=== PATIENT | female | born 1995 | race Caucasian/White ===

== ENCOUNTER 2018-04-01 11:30 | Inpatient (IN) | payer OTHER ==
[~2018-04-01] VITALS: Ht 160 cm; Wt 81.6 kg
[2018-04-27] MEDS ORDERED: FOLIC ACID20 MG PO (08:58)
[2018-04-27] MEDS ORDERED: PRENATAL FORMU1 EAC1 PO (08:58)
== END 2018-04-29 12:06 | DRG 775 ==
LOC: LDR 04-27 03:45 → OB/GYN 04-27 11:57
PROC: 0DQR0ZZ Repair Anal Sphincter, Open Approach (ICD-10-PCS; principal; 2018-04-27)
PROC: 10E0XZZ Delivery of Products of Conception, External Approach (ICD-10-PCS; 2018-04-27)
PROC: 0W8NXZZ Division of Female Perineum, External Approach (ICD-10-PCS; 2018-04-27)
PROC: 4A1HXCZ Monitoring of Products of Conception, Cardiac Rate, External Approach (ICD-10-PCS; 2018-04-27)
PROC: 4A033R1 Measurement of Arterial Saturation, Peripheral, Percutaneous Approach (ICD-10-PCS; 2018-04-27)
DX: O70.20 Third degree perineal laceration during delivery, unspecified (principal); Z3A.39 39 weeks gestation of pregnancy; Z37.0 Single live birth

== ENCOUNTER 2018-04-22 09:09 | Outpatient (CLI) | payer OTHER | END 2018-04-22 13:30 | disposition home or self-care (01) | LOC: NST 09:09 | DX: Z34.83 Encounter for supervision of other normal pregnancy, third trimester (principal) ==

== ENCOUNTER 2020-04-10 15:45 | Inpatient (IN) | payer OTHER ==
[~2020-04-10] VITALS: Ht 160 cm; Wt 81.2 kg
[~2020-04-10 15:45] MED LIST: FOLIC ACID20 MG PO; PRENATAL FORMU1 EAC1 PO
[2020-05-08] MEDS ORDERED: KETO10TA2 PO (07:58)
[2020-05-08] MEDS ORDERED: OXYC1TAB9 PO (07:59)
== END 2020-05-08 13:35 | disposition home or self-care (01) | DRG 798 ==
LOC: SURG-SUITE 05-06 22:09 → LDR 05-06 22:09 → SURG-SUITE 05-07 00:57 → OB/GYN 05-09 14:30
PROVIDERS: ADMIT Obstetrics & Gynecology Maternal & Fetal Medicine; ATTEND Obstetrics & Gynecology Maternal & Fetal Medicine
PROC: 10E0XZZ Delivery of Products of Conception, External Approach (ICD-10-PCS; principal; 2020-05-06)
PROC: 0KQM0ZZ Repair Perineum Muscle, Open Approach (ICD-10-PCS; 2020-05-06)
PROC: 0W8NXZZ Division of Female Perineum, External Approach (ICD-10-PCS; 2020-05-06)
PROC: 4A1HXCZ Monitoring of Products of Conception, Cardiac Rate, External Approach (ICD-10-PCS; 2020-05-06)
PROC: 0UB70ZZ Excision of Bilateral Fallopian Tubes, Open Approach (ICD-10-PCS; 2020-05-07)
DX: O70.1 Second degree perineal laceration during delivery (principal); Z37.0 Single live birth; Z30.2 Encounter for sterilization; Z20.828 Contact with and (suspected) exposure to other viral communicable diseases; Z3A.38 38 weeks gestation of pregnancy

== ENCOUNTER 2020-05-01 14:07 | Outpatient (CLI) | payer OTHER | END 2020-05-01 14:59 | disposition home or self-care (01) | LOC: OBS/DEL 14:07 → NST 14:07 → OBS/DEL 14:59 | PROVIDERS: ATTEND Obstetrics & Gynecology Maternal & Fetal Medicine | DX: Z34.83 Encounter for supervision of other normal pregnancy, third trimester (principal) ==